=== PATIENT | male | born 1935 | race Caucasian/White ===

== ENCOUNTER 2020-05-07 17:54 | Emergency (ER) | payer MEDICARE ==
[~2020-05-07] VITALS: Ht 177.8 cm; Wt 81.7 kg
[2020-05-07] MEDS ORDERED: AUGMENTIN 500-1 EACH PO (19:16)
[2020-05-07] MEDS ORDERED: HYDROCODON-ACE1 EAC7 PO (19:16)
[2020-05-07 19:57] VITALS: BP 108/67
== END 2020-05-07 19:58 | disposition home or self-care (01) ==
LOC: M.ERS 17:54
DX: S81.811A Laceration without foreign body, right lower leg, initial encounter (principal); I48.91 Unspecified atrial fibrillation; W54.0XXA Bitten by dog, initial encounter; Y93.89 Activity, other specified; Y92.89 Other specified places as the place of occurrence of the external cause; Y99.8 Other external cause status